=== PATIENT | female | born 1985 | race Caucasian/White ===

== ENCOUNTER 2024-04-16 19:02 | Emergency (ER) | payer MEDICAID, OTHER ==
[~2024-04-16] VITALS: Ht 165.1 cm; Wt 80.7 kg
[~2024-04-16 19:02] MED LIST: PRENATALS
[2024-04-16 19:15] VITALS: BP 144/57; PULSE 66; RESP 18; TEMP 98.2; O2SAT 99
[2024-04-16 19:36] VITALS: BP 144/57; PULSE 66; RESP 18; TEMP 98.2
[2024-04-16 19:42] VITALS: O2SAT 98
[2024-04-16 19:47] LABS: APPEARANCE,URINE CLEAR (CLEAR); BILIRUBIN,URINE NEGATIVE (NEGATIVE); BLOOD, URINE 3+ (NEGATIVE); COLOR,URINE YELLOW (YELLOW); LEUKOCYTE ESTERASE ,URINE 2+ (NEGATIVE); NITRITE, URINE POSITIVE (NEGATIVE); PROTEIN,URINE 1+ (NEGATIVE); UGLUCOSE NEGATIVE (NEGATIVE); UROBILINOGEN,URINE 0.2 EU/dL (0.2 - 1)
[2024-04-16 19:51] LABS: RBC,URINE TOO NUMEROUS TO COUN /HPF (0-5)
[2024-04-16 19:52] LABS: BACTERIA,URINE FEW /HPF (None Seen); MUCUS,URINE None Seen /LPF (None Seen); SQUAMOUS EPITHELIAL CELL,UR 4-10 (MOD) /LPF (0-3 (FEW)); WBC,URINE 16-25 (MOD) /HPF (0-5)
[2024-04-16] MEDS ORDERED: PHEN-1877 PO (20:00)
[2024-04-16] MEDS ORDERED: IBUP-2213 PO (20:00)
[2024-04-16] MEDS ORDERED: CIPR500T4 PO (20:00)
[2024-04-16] MEDS: KETOROLAC 60 MG/2 ML VIAL IM ONE (20:05)
== END 2024-04-16 20:08 | disposition home or self-care (01) ==
LOC: MED 19:02
DX: N39.0 Urinary tract infection, site not specified (principal); R03.0 Elevated blood-pressure reading, without diagnosis of hypertension
CPT/HCPCS: 81001; 81025; 87086; 96372; 99283; J1885